=== PATIENT | male | born 1960 | race Caucasian/White ===

== ENCOUNTER 2017-07-13 18:42 | Emergency (ER) | payer OTHER ==
[~2017-07-13] VITALS: Ht 172.7 cm; Wt 68.2 kg
[2017-07-13 21:16] VITALS: BP 128/85
== END 2017-07-13 21:17 | disposition home or self-care (01) ==
LOC: EME 18:42
PROC: 3E0234Z Introduction of Serum, Toxoid and Vaccine into Muscle, Percutaneous Approach (ICD-10-PCS; principal; 2017-07-13)
DX: T23.102A Burn of first degree of left hand, unspecified site, initial encounter (principal); Z23 Encounter for immunization; X08.8XXA Exposure to other specified smoke, fire and flames, initial encounter; W40.8XXA Explosion of other specified explosive materials, initial encounter; Y99.0 Civilian activity done for income or pay; F17.200 Nicotine dependence, unspecified, uncomplicated
CPT/HCPCS: 99281; 99284